=== PATIENT | male | born 1970 | race Caucasian/White ===

== ENCOUNTER 2019-08-15 10:00 | Outpatient (CLI) | payer OTHER, SELFPAY | END 2019-08-15 10:01 | disposition home or self-care (01) | LOC: ANHAUDIO 10:01 | PROVIDERS: PCP Family Medicine; Visit Provider Otolaryngology | DX: H90.3 Sensorineural hearing loss, bilateral (principal) | CPT/HCPCS: 92557; 92567 ==

== ENCOUNTER 2020-04-15 05:20 | Emergency (ER) | payer OTHER, SELFPAY ==
--- NOTE | ~2020-04-15 | XR_ITS ---
EXAMINATION: XR chest 2V EXAM DATE: 04/15/2020 06:04 INDICATION: Shortness of breath. Chest pain. TECHNIQUE: Frontal and lateral projections of the chest obtained and reviewed. Comparison is made to prior examination from 02/17/2004. FINDINGS: The lungs are clear. There are no pleural effusions. The cardiomediastinal silhouette is within normal limits. There is no pneumothorax suspected. The bones and soft tissues are unremarkab le. IMPRESSION: Unremarkable chest x-ray exam. Reviewed, dictated and finalized at location A. ING AND TUBING MACHINE OPERATOR
--- NOTE | ~2020-04-15 | CT_ITS ---
EXAMINATION: CTA chest PE protocol EXAM DATE: 04/15/2020 06:32 INDICATION: Chest pain radiating to left shoulder. Shortness of breath. TECHNIQUE: Spiral CTA of the chest (pulmonary arteries) was performed with 100 cc Omnipaque 350 intr avenous contrast injection. Images were acquired during the pulmonary arterial phase. Coronal maxi mum intensity projection 3D-reconstructions were created by the technologist on dedicated workstation . Axial, coronal and sagittal reformatted images were reviewed. The dose-length product (DLP) for t his examination was 233.06 mGy-cm. The exposure was tailored according to patient size (auto mA exp osure control), and iterative reconstruction (ASIR) was used as additional dose reduction technique. There is no prior study for comparison. FINDINGS: Pulmonary arteries are well opacified and without intraluminal filling defects. No thora cic aortic dissection. There is mild emphysema. Mild hyperinflation. The lungs are clear. There are no pleural or pericardial effusions. Tracheobronchial tree is patent. There is no mediastinal, h ilar or axillary lymphadenopathy. There is no pneumothorax. Heart normal in size. No evidence o f coronary arterial calcification. Upper abdomen is unremarkable. The bones are unremarkable. IMPRESSION: 1. No pulmonary emboli. 2. No pulmonary emboli. Reviewed, dictated and finalized at location A. ING MACHINE SETTER
[2020-04-15 05:28] VITALS: BP 143/98; PULSE 80; RESP 18; O2SAT 100
--- NOTE | 2020-04-15 05:33 | ECG_ITS ---
Measurements Intervals [place] Rate: 75 P: 78 [place]: 171 QRS: 76 QRSD: 93 T: 78 QT: 351 QTc: 394 Interpretive Statements SINUS RHYTHM WITH SINUS ARRHYTHMIA POSSIBLE LEFT ATRIAL ENLARGEMENT DELAYED PRECORDIAL R/S TRANSITION BORDERLINE T WAVE ABNORMALITY- HIGH LATERAL LEADS BORDERLINE ECG Electronically Signed On 04-15-2020 7:13:58 ANIMAL CARE SUPERVISOR by Miquel Lindsey D.O.
--- NOTE | 2020-04-15 05:42 | ED.CHESTPAIN ---
HPI - Chest Pain General Chief Complaint: Chest Pain Stated Complaint: cp and sob since yesterday Time Seen by Provider: 04/15/20 05:33 History of Present Illness HPI narrative: 50 yo male presents to the ED for CP. He has had chest pain since 1900 last night. The pain awoke him from sleep. It is sharp substernal pain. It is worse with taking a deep breath. He also has pain in the left shoulder that is worse with arm movement. He has never had these symptoms before. He has not tried anything for his pain. He is a daily smoker. Related Data Allergies Allergy/AdvReac Type Severity Reaction Status Date / Time No Known Allergies Allergy Unverified 06/27/18 16:47 Review of Systems Review of Systems: All systems reviewed & are unremarkable except as noted in HPI and below Constitutional: Constitutional: Denies chills ENT: Denies system reviewed and no additional complaints, except as documented Cardiovascular: Cardiovascular: Reports chest pain Respiratory: Respiratory: Reports dyspnea Gastrointestinal: Gastrointestinal: Denies abdominal pain Musculoskeletal: Musculoskeletal: Reports no additional musculoskeletal complaints Neurologic: Denies numbness and Denies weakness [facility] Past Medical History Medical History (Updated 04/16/20 @ 00:00 by Jessenia Scott) Healthy adult male Social History Social History (Updated 04/15/20 @ 05:[address] MD) Smoking status: Current every day smoker Exam Const: General: healthy appearing, no acute distress and alert Orientation/consciousness: patient oriented x3 HENMT: Head: normal to inspection Neck: Neck: normal visual inspection and no lymphadenopathy Chest: Chest palpation & inspection: tenderness Resp: Effort & Inspection: normal respiratory effort Auscultation: clear to auscultation bilaterally, no rales, no rhonchi and no wheezes Cardio: Jugular venous distension: no JVD Rate: regular rate Rhythm: regular rhythm Heart sounds: no murmurs GI: Inspection: non-distended GI Palp: Yes Soft to palpation and No Tenderness to palpation present (GI) Skin: General skin exam: normal color Neuro: General: patient oriented x3 and moves all extremities Speech: normal speech Extrem: General: no edema Psych: Appearance: well kempt Affect: normal affect Course Vital Signs Vital signs: Vital Signs Pulse Rate 80 04/15/20 05:28 Respiratory Rate 18 04/15/20 05:28 Blood Pressure 143/98 H 04/15/20 05:28 Pulse Oximetry 100 04/15/20 05:28 Temperature 36.8 C 04/15/20 07:20 Pulse Rate 68 04/15/20 07:20 Respiratory Rate 18 04/15/20 07:20 Blood Pressure 139/105 H 04/15/20 07:20 Pulse Oximetry 100 04/15/20 07:20 MDM - Chest Pain MDM Narrative Medical decision making narrative: He has pleuritic chest pain. No PE or pneumonia on CT. He does have an elevated WBC count. Likely bronchitis. Medical Records Data Attestation: I reviewed the patient's medical records. Lab Data Attestation: I reviewed the patient's lab results. Result diagrams: 04/15/20 05:35 04/15/20 05:35 Labs: Lab Results 04/15/20 04/15/20 04/15/20 Range/Units 05:35 05:35 05:35 WBC 17.1 H (4.5-10.0) K/mm3 RBC 4.56 L (4.6-6.20) M/mm3 Hgb 15.1 (14.0-18.0) g/dL Hct 45.6 (42.0-52.0) % MCV 100.0 (80-100) fl MCH 33.1 (26-34) pg MCHC 33.1 (32-36) g/dl RDW 12.9 (11.5-14.5) % Plt Count 233 (150-375) k/mm3 MPV 9.2 (7.4-10.4) fl Immature Gran % (Auto) 0.5 (0-0.5) % Neut % (Auto) 75.1 H (45.5-73.1) % Lymph % (Auto) 17.7 L (18.3-44.2) % [place] % (Auto) 5.5 (2.6-8.5) % Eos % (Auto) 0.7 (0-4.4) % Baso % (Auto) 0.5 (0.2-1.2) % Lymph # (Auto) 3.02 (0.9-3.2) K/mm3 [place] # (Auto) 0.9 H (0.1-0.6) K/mm3 Eos # (Auto) 0.1 (0-0.3) K/mm3 Baso # (Auto) 0.1 (0.0-0.1) K/mm3 Abs Immat Gran (auto) 0.08 H (0.00-0.031) K/mm3 Absolute Neuts (a
[2020-04-15 05:44] VITALS: PULSE 75
[2020-04-15 05:44] LABS: Basophils Absolute Auto 0.1 K/mm3 (0.0-0.1); Basophils Percent Auto 0.5 % (0.2-1.2); Eosinophils Absolute Auto 0.1 K/mm3 (0-0.3); Eosinophils Percent Auto 0.7 % (0-4.4); Hematocrit 45.6 % (42.0-52.0); Hemoglobin 15.1 g/dL (14.0-18.0); Immature Granulocyte Absolute 0.08 K/mm3 (0.00-0.031); Immature Granulocyte Percent A 0.5 % (0-0.5); Lymphocytes Absolute Auto 3.02 K/mm3 (0.9-3.2); Lymphocytes Percent Auto 17.7 % (18.3-44.2); Mean Corpuscular HGB Conc 33.1 g/dl (32-36); Mean Corpuscular Hemoglobin 33.1 pg (26-34); Mean Platelet Volume 9.2 fl (7.4-10.4); Monocytes Absolute Auto 0.9 K/mm3 (0.1-0.6); Monocytes Percent Auto 5.5 % (2.6-8.5); Neutrophils Absolute Auto 12.8 K/mm3 (1.3-6.7); Neutrophils Percent Auto 75.1 % (45.5-73.1); Platelet Count Result 233 k/mm3 (150-375); Red Blood Count 4.56 M/mm3 (4.6-6.20); Red Cell Distribution Width 12.9 % (11.5-14.5); White Blood Count 17.1 K/mm3 (4.5-10.0)
[2020-04-15] MEDS: ASPIRIN 81 MG CHEWABLE TABLET 324 MG PO (05:49)
[2020-04-15 05:56] LABS: INR 0.9; Prothrombin Time 12.2 Seconds (11.1-14.7)
[2020-04-15 05:57] LABS: Anion Gap 4 mmol/L (8-16); Blood Urea Nitrogen 26 mg/dL (9-20); Calcium 9.7 mg/dL (8.4-10.2); Carbon Dioxide 33 mmol/L (22-30); Chloride 103 mmol/L (98-107); Estimated CRCL calculation 43 ml/min; Estimated Glomerular Filt Rate 49; Glucose 95 mg/dL (75-110); Partial Thromboplastin Time 42.4 SECONDS (22.3-36.8); Potassium 4.2 mmol/L (3.4-5.0); Sodium 140 mmol/L (137-145)
[2020-04-15 06:08] LABS: Troponin I < 0.012 ng/mL (0.000-0.034)
[2020-04-15 06:10] VITALS: BP 145/104; PULSE 74; RESP 19; O2SAT 100
[2020-04-15] MEDS: SODIUM CHLORIDE 0.9% IV 1,000 ML 999 ML IV CONT (06:16)
[2020-04-15 06:45] VITALS: PULSE 73; RESP 16
[2020-04-15] MEDS: ALBUTEROL SULFATE NEB 2.5 MG/0.5 ML INH 5 MG INHALATION (06:45)
[2020-04-15] MEDS: IPRATROPIUM BR 0.02% INH SOLN 0.5 MG/2.5 ML VIAL INHALATION (06:45)
[2020-04-15 06:52] VITALS: PULSE 73; RESP 14
[2020-04-15 07:20] VITALS: BP 139/105; PULSE 68; RESP 18; TEMP 36.8; O2SAT 100
== END 2020-04-15 07:36 | disposition home or self-care (01) ==
PROVIDERS: Emergency Provider Emergency Medicine; PCP Family Medicine
DX: J20.9 Acute bronchitis, unspecified (principal); F17.210 Nicotine dependence, cigarettes, uncomplicated
CPT/HCPCS: 36415; 71046; 71275; 80048; 84484; 85025; 85610; 85730; 93005; 94640; 96360; 99284; A9270; J7030; Q9967

== ENCOUNTER 2021-09-06 13:47 | Outpatient (CLI) | payer OTHER, SELFPAY | END 2021-09-06 13:48 | disposition home or self-care (01) | LOC: ANHAUDIO 13:48 | PROVIDERS: PCP Family Medicine; Referring Provider Otolaryngology; Visit Provider Otolaryngology | DX: H91.93 Unspecified hearing loss, bilateral (principal); H93.13 Tinnitus, bilateral | CPT/HCPCS: 92557; 92567 ==

== ENCOUNTER 2021-10-09 11:04 | Inpatient (IN) | payer OTHER, SELFPAY ==
[2021-10-09] VITALS (15 sets, daily range): BP systolic 102–140; BP diastolic 70–93; PULSE 56–79; RESP 14–20; TEMP 36.6–37; O2SAT 93–99; BMI 20.6
--- NOTE | 2021-10-09 | ECHO_ITS ---
Patient Info Name: Gabriella Daly Age: 51 years : 1970 Gender: Male Ht: 65 in Wt: 123 lbs BSA: 1.60 m2 HR: 50 bpm BP: 103 / 70 mmHg Heart Rhythm: Sinus Rhythm Technical Quality: Fair Exam Date: 10/09/2021 1:30 PM Exam Location: [facility] Patient Status: Inpatient Admit Date: 10/09/2021 Staff Ordering Physician: Yoni Fried MD Watermelon Inspector: Daniela Dominguez [facility] Attending Provider: Emanuel Dorado MD Exam Type: CA echo doppler color flow Study Info Indications I21.3 - ST elevation (STEMI) myocardial infarction of unspecified site Complete two-dimensional, color flow and Doppler transthoracic echocardiogram is performed. Summary 1. Complete two-dimensional, color flow and Doppler transthoracic echocardiogram is performed. 2. Left ventricular chamber dimension is normal. 3. Left ventricular systolic function is moderately reduced, estimated at 35-40%. 4. The mid to apical anterior wall, apex, apical inferior wall and anteroseptal segments are akinetic. 5. No valvular dysfunction. Left Ventricle Left ventricular chamber dimension is normal. Left ventricular systolic function is moderately reduced, estimated at 35-40%. The left ventricular diastolic function is normal. The mid to apical anterior wall, apex, apical inferior wall and anteroseptal segments are akinetic. Right Ventricle Right ventricular chamber dimension is normal. Left Atria Left atrial chamber dimension is normal. Right Atria Right atrial chamber dimension is normal. Aortic Valve The aortic valve is normal. Pulmonic Valve The pulmonic valve is normal. Mitral Valve The mitral valve has normal leaflets. There is no mitral valve regurgitation. Tricuspid Valve The tricuspid valve leaflets are normal. Pericardium/Pleural The pericardium appears normal. Aorta The aortic root size at the sinus of Valsalva is normal. Left Ventricular Outflow Tract Name Value Normal LVOT 2D LVOT Diameter 1.9 cm LVOT Doppler LVOT Peak Gradient 1 mmHg LVOT Mean Gradient 1 mmHg LVOT VTI 13 cm LVOT VTI/AV VTI Ratio 0.7 LVOT Stroke Volume 37 ml LVOT CO 6.6 l/min LVOT CI 4.2 l/min/m2 Pulmonic Valve Name Value Normal PV Doppler PV Peak Gradient 2 mmHg Mitral Valve Name Value Normal MV Doppler MV Decel [place] 223 cm/s2 MV PHT
--- NOTE | ~2021-10-09 | CT_ITS ---
EXAMINATION: CT brain wo con DATE: 10/09/2021 11:33 INDICATION: Slurred speech. Left facial droop. TECHNIQUE: Computed tomography (CT) of the head was performed without intravenous contrast. The mA wa s adjusted according to patient size. Iterative reconstruction technique was employed. Exam dose: 60 5.33 mGy-cm total exam DLP. COMPARISON: None FINDINGS: Bilateral carotid siphon internal carotid artery calcification is noted. No intracranial mass lesion or hemorrhage or cerebrovascular accident is detected. CT is not sensitiv e for detection of hyperacute nonhemorrhagic cerebrovascular accident. No midline shift or mass effect effect. Normal ventricular size. No subdural or epidural hematoma. Soft tissue opacification within the posterior right ethmoid air cell. The included paranasal sinuses and the mastoid air cells are otherwise unremarkable. No fracture or bone destruction of the cranial vault. IMPRESSION: Cerebral atherosclerosis No acute intracranial finding CT is not sensitive for detection of hyperacute ischemic CVA. Reviewed, dictated and finalized at [facility]. Reviewed, dictated and finalized at location [facility].
--- NOTE | ~2021-10-09 | XR_ITS ---
XR chest 1V portable DATE: 10/09/2021 11:16 INDICATION: STEMI TECHNIQUE: Portable upright AP chest on 10/09/2021 at 1115 hours COMPARISON: 04/15/2020 CT pulmonary scan 04/15/2020 PA and lateral chest FINDINGS: Normal heart size. No hilar or mediastinal mass lesion or lymphadenopathy is evident. Minimal atelectasis at the lung bases. No pulmonary infiltrate or consolidation, pleural effusion or pulmonary vascular congestion or pneumothorax is evident otherwise. Included skeletal structures are unremarkable other than slight right dextroscoliosis. IMPRESSION: Minimal atelectasis at the lung bases Reviewed, dictated and finalized at location [facility].
--- NOTE | 2021-10-09 11:08 | ECG_ITS ---
Measurements Intervals [place] Rate: 68 P: 77 [place]: 170 QRS: 60 QRSD: 81 T: 54 QT: 358 QTc: 383 Interpretive Statements SINUS RHYTHM WITH MARKED SINUS ARRHYTHMIA POSSIBLE LEFT ATRIAL ENLARGEMENT ANTEROSEPTAL ST ELEVATION MYOCARDIAL INFARCT- ACUTE BASELINE ARTIFACT- I, II, III, AVR, AVL, AVF, V4-V6 ABNORMAL ECG Electronically Signed On 10-09-2021 15:39:09 CDT by Miquel Lindsey D.O.
--- NOTE | 2021-10-09 11:14 | ED.GENADULT ---
HPI - General Adult General Chief complaint: Chest Pain Stated complaint: STEMI History of Present Illness HPI narrative: 51-year-old male with history of hypertension, high cholesterol, and smoking presents to the emergency department for evaluation of cute onset of chest pain that started while he was working in the yard. Patient states he did have pain that radiated up to his neck and into his left arm. Patient states the pain was a 10 out of 10. Patient was treated with aspirin and nitro by EMS and the Related Data Home Medications Medication Instructions Recorded Confirmed folic acid 1 mg tablet 1 mg PO DAILY 09/09/21 10/09/21 methotrexate sodium 2.5 mg tablet 25 mg PO WEEKLY 09/09/21 10/09/21 prednisone 5 mg tablet See Rx Instructions .Route .COMPLEX 09/09/21 10/09/21 tramadol 50 mg tablet 50 mg PO Q6H PRN Pain 09/09/21 10/09/21 levothyroxine 137 mcg tablet 125 mcg PO DAILY 10/09/21 10/09/21 (Synthroid) Allergies Allergy/AdvReac Type Severity Reaction Status Date / Time No Known Allergies Allergy Verified 09/09/21 15:59 Review of Systems Review of Systems: CONSTITUTIONAL: Denies fever, chills, or sweats. EYES: Denies visual changes, redness, or discharge. ENT: Denies rhinorrhea, congestion, sore throat, or otalgia. CARDIOVASCULAR: See HPI RESPIRATORY: Denies cough or dyspnea. GASTROINTESTINAL: Denies abdominal pain, nausea, vomiting, or diarrhea. GENITOURINARY: Denies dysuria or hematuria. SKIN: Denies rash or itching. MUSCULOSKELETAL: Denies back pain, joint pain, or myalgia. NEUROLOGIC: Denies headache, numbness, or weakness. [facility] Past Medical History Medical History CKD (chronic kidney disease) stage 3, GFR 30-59 ml/min Dyslipidemia Erectile dysfunction Frequent headaches GERD (gastroesophageal reflux disease) Headache Healthy adult male Hearing loss Hypothyroidism Migraine Nicotine dependence with current use Syncopal episodes Thyroid disease Family History Family History Father Diabetes mellitus Sibling Diabetes mellitus Mother Hypertension Social History Social History Smoking packs per day: 1 Smoking cigarettes per day: 20.0 Years smoked: 35 Smoking pack-years: 35.00 Smoking status: Current every day smoker Tobacco type: cigarettes Alcohol intake: former Substance use: never Substance use type: does not use Additional occupation/education comments: [employer] Gender identity (if verbalized by the patient): Male Sexual Orientation (if Verbalized by the Patient): Straight or Heterosexual Spiritual care concerns: No Agree to blood products: Yes Exam Narrative: APPEARANCE: Well appearing, no pain, no distress, well-nourished. HEAD: normocephalic, atraumatic. EYES: PERRLA/EOMI, conjunctivae clear. NOSE: Normal no drainage THROAT: Pharynx clear, no exudate. NECK: Supple. No adenopathy, no masses. RESPIRATORY: Airway patent, respirations nonlabored. Clear to auscultation bilaterally, no rales, rhonchi, wheezing. CARDIOVASCULAR: Regular rate and rhythm without murmurs rubs or gallops. ABDOMINAL: Soft, nontender, nondistended, normal bowel sounds MUSCULOSKELETAL: Moves all extremities. Strength/ROM intact, No edema, No calf tenderness. NEURO: Alert. Cranial nerves II through XII intact. Grossly intact, no neurodeficit. Normal strength reflexes. No facial droop. SKIN: Warm, dry. Normal Color Course Course Emergency Course: was concerned that the patient had some left-sided facial droop when she first brought him in from the yard. When EMS arrived to the scene they denied any neurologic deficit. In the emergency department patient has no facial droop and is neurologically intact. Head CT showed no acute intracranial abnormality. Case was discussed with cardiology due to concern for an acute ST
[2021-10-09 11:15] LABS: Basophils Absolute Auto 0.1 K/mm3 (0.0-0.1); Basophils Percent Auto 0.5 % (0.2-1.2); Eosinophils Absolute Auto 0.1 K/mm3 (0-0.3); Eosinophils Percent Auto 0.9 % (0-4.4); Hematocrit 44.4 % (42.0-52.0); Hemoglobin 14.3 g/dL (14.0-18.0); Immature Granulocyte Absolute 0.12 K/mm3 (0.00-0.031); Immature Granulocyte Percent A 0.9 % (0-0.5); Lymphocytes Absolute Auto 3.08 K/mm3 (0.9-3.2); Lymphocytes Percent Auto 23.9 % (18.3-44.2); Mean Corpuscular HGB Conc 32.2 g/dl (32-36); Mean Corpuscular Hemoglobin 31.5 pg (26-34); Mean Corpuscular Volume 97.8 fl (80-100); Mean Platelet Volume 9.1 fl (7.4-10.4); Monocytes Absolute Auto 0.9 K/mm3 (0.1-0.6); Monocytes Percent Auto 6.7 % (2.6-8.5); Neutrophils Absolute Auto 8.6 K/mm3 (1.3-6.7); Neutrophils Percent Auto 67.1 % (45.5-73.1); Platelet Count Result 220 k/mm3 (150-375); Red Blood Count 4.54 M/mm3 (4.6-6.20); Red Cell Distribution Width 13.8 % (11.5-14.5); White Blood Count 12.9 K/mm3 (4.5-10.0)
[2021-10-09] MEDS: MORPHINE SULFATE (*CRX) 4 MG/ML INJ IV PUSH (11:19)
[2021-10-09] MEDS: ONDANSETRON INJ 4 MG/2 ML VIAL IV PUSH (11:24)
[2021-10-09 11:25] LABS: Alanine Aminotransferase 27 U/L (6-50); Albumin Level 3.9 g/dL (3.5-5.1); Alkaline Phosphatase 73 U/L (38-126); Anion Gap 5 mmol/L (8-16); Aspartate Amino Transferase 24 U/L (17-59); Bilirubin,Total 0.3 mg/dL (0.2-1.3); Blood Urea Nitrogen 19 mg/dL (9-20); Calcium 8.6 mg/dL (8.4-10.2); Carbon Dioxide 29 mmol/L (22-30); Chloride 108 mmol/L (98-107); Cholesterol 127 mg/dL (0-200); Estimated CRCL calculation 60 ml/min; Estimated Glomerular Filt Rate > 60; Glucose 135 mg/dL (65-110); HDL Direct 50 mg/dL; Potassium 4.3 mmol/L (3.4-5.0); Sodium 142 mmol/L (137-145); Triglycerides 197 mg/dL (<150)
[2021-10-09 11:26] LABS: Prothrombin Time 12.9 Seconds (11.1-14.7)
[2021-10-09 11:27] LABS: Partial Thromboplastin Time 34.6 SECONDS (22.3-36.8)
[2021-10-09 11:35] LABS: LDL Cholesterol Direct 38 mg/dL
[2021-10-09 11:36] LABS: Troponin I 0.026 ng/mL (0.000-0.034)
--- NOTE | 2021-10-09 12:24 | ECG_ITS ---
Measurements Intervals [place] Rate: 55 P: 84 MD: 135 QRS: 76 QRSD: 101 T: 75 QT: 385 QTc: 370 Interpretive Statements SINUS BRADYCARDIA WITH SINUS ARRHYTHMIA ANTERIOR INFARCT, AGE INDETERMINATE BASELINE ARTIFACT- I, III, AVR, AVL ABNORMAL ECG Electronically Signed On 10-09-2021 15:30:22 CDT by Miquel Lindsey D.O.
--- NOTE | 2021-10-09 12:25 | WPDCNINT ---
Assessment and Plan Assessment and plan (1) ST elevation (STEMI) myocardial infarction: Qualifiers: Involved coronary artery: unspecified coronary artery Qualified Code(s): I21.3 - ST elevation (STEMI) myocardial infarction of unspecified site Code(s): I21.3 - ST elevation (STEMI) myocardial infarction of unspecified site Status: Acute Assessment and Plan: Patient presented with anterior ST segment elevation [place] Now status post cardiac catheterization and stent placement in LAD Angiomax is currently infusing. Sheath will be removed later as per cardiology ICU telemetry monitoring Check echo Cautious IV fluids for renal protection Continue aspirin, Lipitor, Coreg, Brilinta and losartan Currently hemodynamically stable in sinus Jean Marie on telemetry and room air (2) GERD (gastroesophageal reflux disease): Code(s): K21.9 - Gastro-esophageal reflux disease without esophagitis Status: Acute Assessment and Plan: Continue PPI (3) Dyslipidemia: Code(s): E78.5 - Hyperlipidemia, unspecified Status: Acute Assessment and Plan: Patient will be started on Lipitor (4) Hypothyroidism: Qualifiers: Hypothyroidism type: acquired Qualified Code(s): E03.9 - Hypothyroidism, unspecified Code(s): E03.9 - Hypothyroidism, unspecified Status: Acute Assessment and Plan: Continue levothyroxine Patient had recent TSH checked and was elevated and his levothyroxine dose was increased. (5) Arthritis: Code(s): M19.90 - Unspecified osteoarthritis, unspecified site Status: Acute Assessment and Plan: Continue home prednisone and folic acid Additional Plan DVT prophylaxis -patient received anticoagulation for cardiac catheterization. Will start anticoagulation tomorrow if patient still not ambulating Stress ulcer prophylaxis -on PPI Nutrition -heart healthy diet Code Status - Full Code Vocational Examiner Consult Note Consult date: 10/09/21 Reason for consult: STEMI HPI: Gabriella Daly is a 51 year old male with history of hypertension, hyperlipidemia, arthritis and smoking presents to the emergency department for evaluation of acute cute onset of chest pain that started while he was working in the yard around 9:30 a.m.. Pain was pressure in quality and radiated up to his neck and into his left arm.? Pain was 10 out of 10 severe Patient was treated with aspirin and nitro by EMS and any ER patient was found to be having anterior STEMI. Patient was taken to cardiac catheterization lab and underwent angiogram which showed total occlusion of left anterior descending artery. A stent was placed LAD. Patient now admitted to ICU for further evaluation management. At this time patient states that he does not have any symptoms and pain is present resolved. Patient denies fever, shortness of breath, cough, nausea vomiting, abdominal pain,, diarrhea, headache or constipation. All other systems reviewed In August when patient saw his primary care physician, he mentioned retrosternal heartburn pain for which she was taking Tums but when I asked patient about this he completely denied having any pain or taking Tums. Review of Systems Review of Systems: All systems reviewed & are unremarkable except as noted in HPI and below (HPI) PMFSH Past Medical History Medical History CKD (chronic kidney disease) stage 3, GFR 30-59 ml/min Dyslipidemia Erectile dysfunction Frequent headaches GERD (gastroesophageal reflux disease) Headache Healthy adult male Hearing loss Hypothyroidism Migraine Nicotine dependence with current use Syncopal episodes Thyroid disease Family History Family History Father Diabetes mellitus Sibling Diabetes mellitus Mother Hypertension Social History Social History Kel
--- NOTE | 2021-10-09 12:27 | WPDCARDPROC ---
Cardiac Cath Procedure Note Date of procedure:: 10/09/21 Performing physician:: Emanuel Dorado MD Indication:: anterior wall ST-elevation [place] Brief clinical history:: this is a 51-year-old man with a previous history of dyslipidemia and smoking as arthritis for which he takes steroids. He enters the hospital with chest pain that began this morning while he was doing yd work with ECG evidence of acute anterior wall infarction noted in the field. Procedure Procedure performed:: Emergency coronary angiogram emergency PCI(KIMBER) to the proximal LAD left ventriculography Sedation/Medication given:: no additional sedation in the laboratory technology teacher Access site:: right femoral artery Estimated blood loss:: 25 cc Procedure note:: patient was brought to the cardiac laboratory technology teacher in the emergency setting. The right femoral triangle was prepared and draped in the usual fashion. Anesthesia was provided with 1% lidocaine infiltrated locally. Using the modified Seldinger technique a 6 Haitian sheath was placed into the right femoral artery. After this I used a standard 5 Haitian JR4 catheter to engage and inject the right coronary artery and orthogonal projections. Following this the left coronary artery was engaged and injected using a 6 Haitian CLS 3.5 guiding catheter. The cineangiograms were then reviewed after this emergency PCI of the proximal LAD was recommended and carried out as detailed below. Prior to intervention he was anticoagulated with Angiomax bolus and infusion any receive 180 mg oral Brilinta. He had been given 325 mg of aspirin in the emergency room. Following completion of intervention a pigtail catheter was used to measure left-sided hemodynamics and to inject LV g in the 30 degree MADRID projection. After this the sheath was sutured into position the case was terminated and the patient was taken to the ICU in stable condition. He tolerated the procedure well there were no apparent complications. There was no sign of groin hematoma upon leaving the cardiac catheterization lab. Findings:: Hemodynamics: The central aortic pressure is 118/76. left ventricle was 116/10 end-diastolic pressure 22. No gradient seen on pullback across the aortic valve. Left ventricle: The left ventricle is mildly enlarged the entire anterior wall is akinetic. The posterior inferior segment contracts well. The global ejection fraction at this time is visually estimated at 35%. The left main coronary artery is nicely patent the left anterior descending is a moderate caliber artery which gives rise to a small proximal septal perforating branch after which the LAD is 100% occluded with no antegrade filling. Appearance of this occlusion is typical of an abrupt thrombotic stenosis. The circumflex is a smaller caliber vessel giving rise to 2 marginal branches. The circumflex and its marginal branches are angiographically free of disease. The right coronary artery is a very large caliber artery that is dominant to the posterior circulation. The right coronary artery is smooth and angiographically normal in appearance intervention: The LAD was wired using a 0.014 BMW coronary guidewire. The lesion was pre-dilated using a 3 x 20 mm Og PTCA balloon. Following this the LAD was patent with YANET 3 flow down to the apex. The area of disease was then of course visible. The lesion was then stented using a 3.5 x 26 mm [employer] drug-eluting stent with an excellent anatomical result. The device was deployed at 10 atmospheres with no residual stenosis disruption dissection or distal embolization. There was good step-up and step-down noted at the proximal and distal margins of the stent. Conclusion:: 1. Coronary artery disease presenting with acute anterior wall infarction with abrupt acute thrombotic occlusion of the proximal LAD. 2. No circumflex or right coronary disease noted 3. severe LV systolic dysfunction with low ejection fr
--- NOTE | 2021-10-09 12:39 | PM.IMHP ---
H&P: HPI History of Present Illness Date/Time: 10/09/21 12:39 Chief Complaint: chest pain Narrative: this is a 51-year-old man I am meeting in the cardiac cath laboratory technician as he is being prepared for emergency angiography in the setting of acute anterior wall infarction. He has no prior history of overt coronary artery disease. This morning while mowing his yd he started chest pain as a retrosternal burning pressure-like pain. It did not radiate to any other location. After the pain had been there for a while he called 911 and in the field was found to have an ECG compatible with acute anterior wall infarction. STEMI was called and the emergency was activated. He reports a previous history of dyslipidemia as well as arthritis. He also has treated hypothyroidism. Review of Systems Review of Systems: ROS unobtainable: Yes unobtainable due to medical condition PMFSH Past Medical History Medical History CKD (chronic kidney disease) stage 3, GFR 30-59 ml/min Dyslipidemia Erectile dysfunction Frequent headaches GERD (gastroesophageal reflux disease) Headache Healthy adult male Hearing loss Hypothyroidism Migraine Nicotine dependence with current use Syncopal episodes Thyroid disease Family History Family History Father Diabetes mellitus Sibling Diabetes mellitus Mother Hypertension Social History Social History Smoking status: Current every day smoker Tobacco type: cigarettes Alcohol intake: current Substance use: never Substance use type: does not use Additional occupation/education comments: [employer] Gender identity (if verbalized by the patient): Male Sexual Orientation (if Verbalized by the Patient): Straight or Heterosexual Agree to blood products: Yes Meds Home Medications and Allergies Home Medications Medication Instructions Recorded Confirmed Type atorvastatin 40 mg tablet (Lipitor) 40 mg PO QHS #90 tabs 07/15/21 09/09/21 Rx azelastine 137 mcg (0.1 %) nasal 1 spray intranasal Q12H #30 mL 08/02/21 09/09/21 Rx spray aerosol fluticasone propionate 50 1 - 2 spray intranasal BID #16 mL 08/02/21 09/09/21 Rx mcg/actuation nasal spray,suspension (Flonase Allergy Relief) cholecalciferol (vitamin D3) 50 50 mcg PO DAILY 09/09/21 09/09/21 History mcg (2,000 unit) capsule ferrous gluconate 240 mg (27 mg 240 mg PO DAILY PRN 09/09/21 09/09/21 History iron) tablet (Ferate) folic acid 1 mg tablet 1 mg PO DAILY 09/09/21 09/09/21 History methotrexate sodium 2.5 mg tablet 25 mg PO WEEKLY 09/09/21 09/09/21 History omega 6-lsa-iwc-fish oil 1,000 mg 1 cap PO DAILY 09/09/21 09/09/21 History (120 mg-180 mg) capsule (Fish Oil) omeprazole 40 mg capsule,delayed 40 mg PO DAILY #90 caps 09/09/21 09/09/21 Rx release prednisone 5 mg tablet 5 mg PO BID 09/09/21 09/09/21 History tramadol 50 mg tablet 50 mg PO Q6H PRN 09/09/21 09/09/21 History Synthroid 137 mcg tablet 137 mcg PO DAILY #90 tabs 09/13/21 Rx (levothyroxine) Allergies Allergy/AdvReac Type Severity Reaction Status Date / Time No Known Allergies Allergy Verified 09/09/21 15:59 Vital Signs Vital Signs - 24 hr 10/09/21 11:05 10/09/21 11:30 Temperature 36.7 C Pulse Rate 62 Respiratory Rate 14 Blood Pressure 103/70 Pulse Oximetry 98 99 Oxygen Delivery Room Air Room Air Exam Const: General: uncomfortable Other: Well-developed well-nourished gentleman in remarkably little distress given anterior TN HENMT: Mouth: Yes moist mucous membranes Eyes: Sclera: sclerae normal Neck: Neck: supple and no JVD Other: normal carotid pulses bilateral Resp: Effort & Inspection: normal respiratory effort Auscultation: clear to auscultation bilaterally Cardio: Rate: regular rate Rhythm: regular rhythm Other: S4 is evident no murmur GI: G
[2021-10-09] MEDS: SODIUM CHLORIDE 0.9% IV 1,000 ML 125 ML IV CONT (13:55)
[2021-10-09] MEDS: NITROGLYCERIN SL 0.4 MG TABLET SUBLINGUAL (13:55)
[2021-10-09] MEDS: MORPHINE SULFATE (*CRX) 2 MG/ML INJ IV PUSH ×2 (15:13→19:44)
[2021-10-09 15:53] LABS: Troponin I > 80.000 ng/mL (0.000-0.034)
--- NOTE | 2021-10-09 17:00 | PC.NURSE ---
Sheath was removed at 1604. Pressure was held proximal to the sheath site for 15 minutes. Hemostasis was achieved at 1619. Site was soft, no evidence of hematoma or bruising at the time.
--- NOTE | 2021-10-09 17:13 | PC.NURSE ---
While removing patient's sheath from the cardiac cath site, patient's spouse noticed the sign on the wall in the room regarding video surveillance. Patient's stated you all monitor people? That's so wrong, I don't want people seeing my privates. Patient's was informed we're not looking at anyone's privates, it is to monitor for patient safety. Charge, warehouse representative, manager credit risk and director were notified. I was instructed to give patient the option of turning off the camera. Patient was informed that it could be turned off if he would like and patient stated no, it doesn't bother me, I don't care.
[2021-10-09] MEDS: CALCIUM CARBONATE (TUMS) 500 MG (200 MG ELEMENTAL) PO (18:20)
[2021-10-09 19:20] LABS: Troponin I > 80.000 ng/mL (0.000-0.034)
[2021-10-09] MEDS: carvediloL 6.25 MG TABLET PO (22:27)
[2021-10-09] MEDS: TICAGRELOR 90 MG TABLET PO (22:27)
[2021-10-10] VITALS (16 sets, daily range): BP systolic 88–131; BP diastolic 56–95; PULSE 53–81; RESP 12–22; TEMP 36.6–37.8; O2SAT 95–100
[2021-10-10 04:27] LABS: Hematocrit 43.8 % (42.0-52.0); Hemoglobin 14.1 g/dL (14.0-18.0); Mean Corpuscular HGB Conc 32.2 g/dl (32-36); Mean Corpuscular Hemoglobin 31.4 pg (26-34); Mean Corpuscular Volume 97.6 fl (80-100); Mean Platelet Volume 9.1 fl (7.4-10.4); Platelet Count Result 184 k/mm3 (150-375); Red Blood Count 4.49 M/mm3 (4.6-6.20); Red Cell Distribution Width 13.9 % (11.5-14.5); White Blood Count 17.1 K/mm3 (4.5-10.0)
[2021-10-10 04:39] LABS: Alanine Aminotransferase 50 U/L (6-50); Albumin Level 3.4 g/dL (3.5-5.1); Alkaline Phosphatase 68 U/L (38-126); Anion Gap 2 mmol/L (8-16); Aspartate Amino Transferase 216 U/L (17-59); Bilirubin,Total 0.5 mg/dL (0.2-1.3); Blood Urea Nitrogen 14 mg/dL (9-20); Calcium 8.2 mg/dL (8.4-10.2); Carbon Dioxide 27 mmol/L (22-30); Chloride 107 mmol/L (98-107); Estimated CRCL calculation 66 ml/min; Estimated Glomerular Filt Rate > 60; Glucose 168 mg/dL (65-110); Magnesium 2.1 mg/dL (1.6-2.3); Phosphorus 2.9 mg/dL (2.5-4.5); Sodium 136 mmol/L (137-145)
--- NOTE | 2021-10-10 05:11 | ECG_ITS ---
Measurements Intervals [place] Rate: 66 P: 88 [place]: 141 QRS: 83 QRSD: 100 T: 105 QT: 366 QTc: 385 Interpretive Statements SINUS RHYTHM ANTEROLATERAL INFARCT, PROBABLY RECENT BASELINE ARTIFACT- I, II, AVR, V2 ABNORMAL ECG Electronically Signed On 10-10-2021 9:47:49 CDT by Miquel Lindsey D.O.
[2021-10-10] MEDS: LEVOTHYROXINE SODIUM 112 MCG, LEVOTHYROXINE SODIUM 25 MCG 137 MCG PO (06:41)
--- NOTE | 2021-10-10 08:05 | WPDINTPN ---
Progress Note: A&P Assessment and Plan (1) ST elevation (STEMI) myocardial infarction: Qualifiers: Involved coronary artery: unspecified coronary artery Qualified Code(s): I21.3 - ST elevation (STEMI) myocardial infarction of unspecified site Code(s): I21.3 - ST elevation (STEMI) myocardial infarction of unspecified site Status: Acute Assessment and Plan: Patient presented with anterior ST segment elevation [place] Now status post cardiac catheterization and stent placement in LAD Sheath removed ICU telemetry monitoring Echo done and report pending Continue aspirin, Lipitor, Coreg, Brilinta and losartan Currently asymptomatic chest pain-free hemodynamically stable in sinus Jean Marie on telemetry and room air (2) GERD (gastroesophageal reflux disease): Code(s): K21.9 - Gastro-esophageal reflux disease without esophagitis Status: Acute Assessment and Plan: Continue PPI (3) Dyslipidemia: Code(s): E78.5 - Hyperlipidemia, unspecified Status: Acute Assessment and Plan: Continue Lipitor (4) Hypothyroidism: Qualifiers: Hypothyroidism type: acquired Qualified Code(s): E03.9 - Hypothyroidism, unspecified Code(s): E03.9 - Hypothyroidism, unspecified Status: Acute Assessment and Plan: Continue levothyroxine Patient had recent TSH checked and was elevated and his levothyroxine dose was increased. (5) Arthritis: Code(s): M19.90 - Unspecified osteoarthritis, unspecified site Status: Acute Assessment and Plan: Continue home prednisone and folic acid Additional Plan DVT prophylaxis -patient received anticoagulation for cardiac catheterization. Will start anticoagulation tomorrow if patient still not ambulating Stress ulcer prophylaxis -on PPI Nutrition -heart healthy diet Code Status - Full Code Incentive spirometry, Up in chair transfer out of ICU today Subjective Date/time seen: 10/10/21 08:05 Patient states that he slept well and does not have any new complaints. Patient denies fever, chest pain, shortness of breath, cough, nausea vomiting, abdominal pain,, diarrhea, headache or constipation. All other systems were reviewed and were negative Sinus Jean Marie on the monitor with adequate blood pressure Room air Sheath was removed overnight Review of Systems Review of Systems: All systems reviewed & are unremarkable except as noted in HPI and below (HPI) Exam Narrative: General: Pt is alert awake and in NAD Lungs/Chest: Trachea central Clear BS B/L, No crackles or wheezing. Cardiac: RRR. Normal S1 S2. No murmurs Circulation: Pedal pulses are intact and symmetrical. Abdomen: Normal bowel sounds.. Soft. NT. ND. Extremities: No clubbing, cyanosis or edema. Warm right groin with no hematoma swelling or bruising : [place] in place Neurologic: Follows commands. Moves all 4 extremities PERRL AO x3 Skin: No Rash Objective Data Vital Signs Vital Signs: Vital Signs - 24 hr 10/09/21 11:05 10/09/21 11:30 10/09/21 14:00 Temperature 36.7 C Pulse Rate 62 58 L Respiratory Rate 14 Blood Pressure 103/70 Pulse Oximetry 98 99 Oxygen Delivery Room Air Room Air Oxygen Flow Rate 10/09/21 15:54 10/09/21 16:05 10/09/21 16:10 Temperature Pulse Rate 58 L 61 61 Respiratory Rate 16 19 19 Blood Pressure 102/76 105/78 107/74 Pulse Oximetry 96 96 96 Oxygen Delivery Oxygen Flow Rate 10/09/21 16:15 10/09/21 16:20 10/09/21 16:00 Temperature Pulse Rate 58 L 57 L Respiratory Rate 20 20 Blood Pressure 106/80 106/78 Pulse Oximetry 95 93 97 Oxygen Delivery Nasal Cannula Oxygen Flow Rate 2 10/09/21 16:00 10/09/21 16:00 10/09/21 18:00 Temperature Pulse Rate 57 L 61 61 Respiratory Rate 15 Blood Pressure 108/78 Pulse Oximetry 97 Oxygen Delivery Oxygen Flow Rate 10/09/21 18:00 10/09/21 12:30 10/09/21 20:00 Temperature 36.6 C Pulse Rate 66 79 56 L Respiratory R
[2021-10-10] MEDS: OMEGA 3 POLYUNSAT FATTY ACIDS 1 GM CAP PO (08:53)
[2021-10-10] MEDS: predniSONE 5 MG TABLET PO (08:53)
[2021-10-10] MEDS: LOSARTAN POTASSIUM 12.5 MG TABLET PO (08:53)
[2021-10-10] MEDS: ATORVASTATIN 40 MG TABLET 80 MG PO (08:53)
[2021-10-10] MEDS: carvediloL 6.25 MG TABLET PO ×2 (08:54→20:51)
[2021-10-10] MEDS: TICAGRELOR 90 MG TABLET PO ×2 (08:54→20:51)
[2021-10-10] MEDS: FOLIC ACID 1 MG TABLET PO (08:54)
[2021-10-10] MEDS: ASPIRIN 81 MG CHEWABLE TABLET PO (08:56)
--- NOTE | 2021-10-10 09:37 | PM.PNCARD ---
Progress Note: A&P Assessment and Plan (1) ST elevation (STEMI) myocardial infarction: Qualifiers: Involved coronary artery: unspecified coronary artery Qualified Code(s): I21.3 - ST elevation (STEMI) myocardial infarction of unspecified site Code(s): I21.3 - ST elevation (STEMI) myocardial infarction of unspecified site Status: Acute Plan 51-year-old man with previous history of dyslipidemia and smoking with acute anterior wall infarction and successful PCI of the LAD using the sirolimus Orsiro drug-eluting stent with a very good anatomical result. The patient is doing well this morning. Very high troponin rise and ECG evidence suggests a extensive transmural infarction. He did present a little bit later were about 3 to 3-1/2 hours following onset of symptoms. Hopefully he will experience some myocardial recovery but clearly there will be persistent LV systolic dysfunction based on this data. His ARB will will be advanced in dosage as his blood pressure is fine. He can move out to the IMU today. Expect him to be in the hospital a couple of more days at minimum Emanuel Dorado MD [facility] Subjective Date/time seen: Date of service:10/10/21 09:37 Interval history: Follow-up visit in this 51-year-old man with: Acute anterior wall myocardial infarction presenting yesterday with no previous cardiac history. Risk factors include dyslipidemia and cigarette smoking. He was brought to the cardiac labourers immediately and underwent successful PCI of the proximal LAD using drug-eluting stent with excellent angiographic result. The anterior wall is akinetic with a residual ejection fraction of about 35% at this time. Hopefully some of this is stunned rather than infarcted myocardium. Asymptomatic this morning feeling well. Exam Const: General: comfortable and no acute distress HENMT: Mouth: Yes moist mucous membranes Eyes: Sclera: sclerae normal Pupils: Equal, round and reactive pupils present Neck: Neck: supple and no JVD Other: Carotid pulses intact bilaterally no bruits Resp: Effort & Inspection: normal respiratory effort Auscultation: clear to auscultation bilaterally Cardio: Rate: regular rate Rhythm: regular rhythm Other: no murmur no gallop no rub GI: Auscultation: normal bowel sounds Skin: General skin exam: normal color Neuro: Other: normal cognition Extrem: General: normal to inspection Other: no edema, good pulses no hematoma at the right groin puncture site Objective Data Vital Signs Vital Signs: Vital Signs - 24 hr 10/09/21 11:05 10/09/21 11:30 10/09/21 14:00 Temperature 36.7 C Pulse Rate 62 58 L Respiratory Rate 14 Blood Pressure 103/70 Pulse Oximetry 98 99 Oxygen Delivery Room Air Room Air Oxygen Flow Rate 10/09/21 15:54 10/09/21 16:05 10/09/21 16:10 Temperature Pulse Rate 58 L 61 61 Respiratory Rate 16 19 19 Blood Pressure 102/76 105/78 107/74 Pulse Oximetry 96 96 96 Oxygen Delivery Oxygen Flow Rate 10/09/21 16:15 10/09/21 16:20 10/09/21 16:00 Temperature Pulse Rate 58 L 57 L Respiratory Rate 20 20 Blood Pressure 106/80 106/78 Pulse Oximetry 95 93 97 Oxygen Delivery Nasal Cannula Oxygen Flow Rate 2 10/09/21 16:00 10/09/21 16:00 10/09/21 18:00 Temperature Pulse Rate 57 L 61 61 Respiratory Rate 15 Blood Pressure 108/78 Pulse Oximetry 97 Oxygen Delivery Oxygen Flow Rate 10/09/21 18:00 10/09/21 12:30 10/09/21 20:00 Temperature 36.6 C Pulse Rate 66 79 56 L Respiratory Rate 18 18 Blood Pressure 126/90 108/77 Pulse Oximetry 94 93 Oxygen Delivery Oxygen Flow Rate 10/09/21 20:00 10/09/21 20:00 10/09/21 21:00 Temperature 37.0 C Pulse Rate 61 62 Respiratory Rate 20 18 Blood Pressure 133/91 H 140/93 H Pulse Oximetry 93 93 94 Oxygen Delivery Room Air Oxygen Flow Rate 10/09/21 22:00 10/09/21 22:00 10/10/21 00:00 Temperature Pulse Ra
[2021-10-10] MEDS: PANTOPRAZOLE 40 MG TABLET PO (09:54)
--- NOTE | 2021-10-10 11:52 | PC.NURSE ---
1151- Dr Dorado at bedside explaining in-depth patients NV, procedure, medications,risk,labs, follow-up,and possible outcomes to patients .
--- NOTE | 2021-10-10 15:19 | PC.NURSE ---
Patient at bedside very agitated about patients heart healthy diet, not sure what he can order,mad about caffeinated vs noncaffeinated coffee. also upset about not being informed about what patients reason for being here and what has all happened to him. Nurse tried to explain and educate what doctor said to patient/ new medications during rounds, cut nurse off and began yelling . Patients also yelling at patient for not recalling information doctor informed him with, his meal selections etc. later apologized to nurse for outburst, nurse explained to Hortensia that we were sorry for all the stress that she is under and Gabriella is our top priority. All staff were never trying to offend her or make her angry in anyway intentionally. Provided Hortensia with patient advocates number and new medication information, coreg, losartan, and brilinta.
[2021-10-11] VITALS (17 sets, daily range): BP systolic 89–115; BP diastolic 57–86; PULSE 51–67; RESP 16–22; TEMP 36.3–36.9; O2SAT 97–99; BMI 22.3
[2021-10-11 04:31] LABS: Hematocrit 41.5 % (42.0-52.0); Hemoglobin 13.1 g/dL (14.0-18.0); Mean Corpuscular HGB Conc 31.6 g/dl (32-36); Mean Corpuscular Hemoglobin 31.5 pg (26-34); Mean Corpuscular Volume 99.8 fl (80-100); Mean Platelet Volume 9.4 fl (7.4-10.4); Platelet Count Result 180 k/mm3 (150-375); Red Blood Count 4.16 M/mm3 (4.6-6.20); White Blood Count 13.4 K/mm3 (4.5-10.0)
[2021-10-11 04:42] LABS: Alanine Aminotransferase 37 U/L (6-50); Albumin Level 3.2 g/dL (3.5-5.1); Alkaline Phosphatase 61 U/L (38-126); Anion Gap 1 mmol/L (8-16); Aspartate Amino Transferase 97 U/L (17-59); Bilirubin,Total 0.3 mg/dL (0.2-1.3); Blood Urea Nitrogen 14 mg/dL (9-20); Carbon Dioxide 28 mmol/L (22-30); Chloride 110 mmol/L (98-107); Estimated CRCL calculation 59 ml/min; Estimated Glomerular Filt Rate > 60; Glucose 102 mg/dL (65-110); Magnesium 2.1 mg/dL (1.6-2.3); Phosphorus 3.4 mg/dL (2.5-4.5); Potassium 4.1 mmol/L (3.4-5.0); Sodium 139 mmol/L (137-145)
[2021-10-11] MEDS: LEVOTHYROXINE SODIUM 112 MCG, LEVOTHYROXINE SODIUM 25 MCG 137 MCG PO (05:49)
[2021-10-11] MEDS: TICAGRELOR 90 MG TABLET PO ×2 (08:26→20:07)
[2021-10-11] MEDS: FOLIC ACID 1 MG TABLET PO (08:26)
[2021-10-11] MEDS: ATORVASTATIN 40 MG TABLET 80 MG PO (08:26)
[2021-10-11] MEDS: carvediloL 6.25 MG TABLET PO ×2 (08:26→20:08)
[2021-10-11] MEDS: PANTOPRAZOLE 40 MG TABLET PO (08:26)
[2021-10-11] MEDS: OMEGA 3 POLYUNSAT FATTY ACIDS 1 GM CAP PO (08:26)
[2021-10-11] MEDS: predniSONE 5 MG TABLET PO (08:26)
[2021-10-11] MEDS: LOSARTAN POTASSIUM 25 MG TABLET PO (08:27)
[2021-10-11] MEDS: ASPIRIN 81 MG CHEWABLE TABLET PO (08:29)
--- NOTE | 2021-10-11 11:36 | PM.PNCARD ---
Progress Note: A&P Assessment and Plan (1) ST elevation (STEMI) myocardial infarction: Qualifiers: Involved coronary artery: unspecified coronary artery Qualified Code(s): I21.3 - ST elevation (STEMI) myocardial infarction of unspecified site Code(s): I21.3 - ST elevation (STEMI) myocardial infarction of unspecified site Status: Acute Assessment and Plan: 51-year-old man with previous history of dyslipidemia and smoking with acute anterior wall infarction and successful PCI of the LAD using the sirolimus Orsiro drug-eluting stent with a very good anatomical result. Unfortunately somewhat late presentation and has some LV systolic dysfunction as a result, EF 40-45%. Continue DAPT with ASA, Brilinta without interruption for at least one year Continue statin Continue aggressive risk factor modification including smoking cessation, heart healthy diet, aerobic exercise Continue losartan, coreg Anticipate discharge tomorrow if he remains stable overnight Subjective Date/time seen: 10/11/21 11:36 Cardiology follow up for CAD, STEMI Feels well this morning. No recurrent chest pain, no shortness of breath. Vital signs are stable, no arrhythmias on telemetry. Review of Systems Review of Systems: All systems reviewed & are unremarkable except as noted in HPI and below Exam Const: General: comfortable, no acute distress and uncomfortable Other: Well-developed well-nourished gentleman in remarkably little distress given anterior SD HENMT: Mouth: Yes moist mucous membranes Eyes: Sclera: sclerae normal Pupils: Equal, round and reactive pupils present Neck: Neck: supple and no JVD Resp: Effort & Inspection: normal respiratory effort Auscultation: clear to auscultation bilaterally Cardio: Rate: regular rate Rhythm: regular rhythm Heart sounds: no gallops, no murmurs and no rubs Other: GI: Auscultation: normal bowel sounds Skin: General skin exam: normal color Other: R groin arterial access site free from bleeding, hematoma, bruit. Neuro: Cranial nerves: Yes Equal, round and reactive pupils present Other: normal cognition Extrem: General: normal to inspection Other: no edema, good pulses no hematoma at the right groin puncture site Objective Data Vital Signs Vital Signs: Vital Signs - 24 hr 10/10/21 12:00 10/10/21 12:00 10/10/21 12:00 Temperature 36.6 C Pulse Rate 58 L 73 Respiratory Rate 19 Blood Pressure 114/64 Pulse Oximetry 97 Oxygen Delivery Room Air 10/10/21 16:00 10/10/21 14:00 10/10/21 14:00 Temperature 36.9 C 36.6 C Pulse Rate 53 L 61 63 Respiratory Rate 12 22 H Blood Pressure 88/56 L 99/69 L Pulse Oximetry 98 99 Oxygen Delivery 10/10/21 16:00 10/10/21 18:00 10/10/21 18:00 Temperature Pulse Rate 56 L 64 64 Respiratory Rate Blood Pressure Pulse Oximetry Oxygen Delivery 10/10/21 20:00 10/10/21 20:00 10/10/21 20:00 Temperature 36.8 C Pulse Rate 81 80 80 Respiratory Rate 18 18 Blood Pressure 110/66 Pulse Oximetry 100 100 Oxygen Delivery Room Air 10/10/21 20:51 10/10/21 22:00 10/10/21 22:11 Temperature Pulse Rate 69 58 L 58 L Respiratory Rate Blood Pressure Pulse Oximetry Oxygen Delivery 10/10/21 23:30 10/11/21 00:00 10/11/21 00:00 Temperature 37.8 C H Pulse Rate 76 63 63 Respiratory Rate 20 20 Blood Pressure 122/71 Pulse Oximetry 99 99 Oxygen Delivery Room Air 10/11/21 02:00 10/11/21 03:00 10/11/21 04:00 Temperature 36.9 C Pulse Rate 58 L 67 60 Respiratory Rate 20 Blood Pressure 106/68 Pulse Oximetry 98 Oxygen Delivery 10/11/21 04:00 10/11/21 06:00 10/11/21 08:00 Temperature 36.5 C Pulse Rate 60 62 61 Respiratory Rate 20 16 Blood Pressure 115/86 Pulse Oximetry 98 99 Oxygen Delivery Room Air Intake/Output Intake/Output: Intake & Output 10/08/21 10/09/21 10/10/21 10/11/21 23:59 23:59 23:59 23:59 Inta
--- NOTE | 2021-10-11 19:29 | PC.NURSE ---
Notified DESTINEE Amador of pt's HR decreasing to 40's, but not sustained.
[2021-10-12] VITALS (7 sets, daily range): BP systolic 97–118; BP diastolic 55–70; PULSE 48–75; RESP 16–20; TEMP 36.2–36.7; O2SAT 97–99
[2021-10-12 05:02] LABS: Hematocrit 40.5 % (42.0-52.0); Hemoglobin 13.2 g/dL (14.0-18.0); Mean Corpuscular HGB Conc 32.6 g/dl (32-36); Mean Corpuscular Volume 98.3 fl (80-100); Mean Platelet Volume 9.9 fl (7.4-10.4); Platelet Count Result 183 k/mm3 (150-375); Red Blood Count 4.12 M/mm3 (4.6-6.20); Red Cell Distribution Width 13.7 % (11.5-14.5); White Blood Count 13.5 K/mm3 (4.5-10.0)
[2021-10-12 05:13] LABS: Alanine Aminotransferase 30 U/L (6-50); Albumin Level 3.3 g/dL (3.5-5.1); Alkaline Phosphatase 59 U/L (38-126); Anion Gap 5 mmol/L (8-16); Aspartate Amino Transferase 51 U/L (17-59); Bilirubin,Total 0.3 mg/dL (0.2-1.3); Blood Urea Nitrogen 17 mg/dL (9-20); Calcium 8.4 mg/dL (8.4-10.2); Carbon Dioxide 27 mmol/L (22-30); Chloride 107 mmol/L (98-107); Estimated CRCL calculation 65 ml/min; Estimated Glomerular Filt Rate > 60; Glucose 143 mg/dL (65-110); Phosphorus 3.9 mg/dL (2.5-4.5); Potassium 3.8 mmol/L (3.4-5.0); Sodium 139 mmol/L (137-145)
[2021-10-12] MEDS: LEVOTHYROXINE SODIUM 112 MCG, LEVOTHYROXINE SODIUM 25 MCG 137 MCG PO (06:25)
[2021-10-12] MEDS: ASPIRIN 81 MG CHEWABLE TABLET PO (08:17)
[2021-10-12] MEDS: FOLIC ACID 1 MG TABLET PO (08:17)
[2021-10-12] MEDS: carvediloL 6.25 MG TABLET PO (08:17)
[2021-10-12] MEDS: ATORVASTATIN 40 MG TABLET 80 MG PO (08:17)
[2021-10-12] MEDS: OMEGA 3 POLYUNSAT FATTY ACIDS 1 GM CAP PO (08:17)
[2021-10-12] MEDS: LOSARTAN POTASSIUM 25 MG TABLET PO (08:17)
[2021-10-12] MEDS: TICAGRELOR 90 MG TABLET PO (08:17)
[2021-10-12] MEDS: PANTOPRAZOLE 40 MG TABLET PO (08:17)
[2021-10-12] MEDS: predniSONE 5 MG TABLET PO (08:17)
--- NOTE | 2021-10-12 08:38 | PM.DS ---
DS: Admitting Diagnosis Discharge Date 10/12/2021 Admitting Diagnosis chest pain DS: Discharge Diagnosis Discharge Diagnosis (1) ST elevation (STEMI) myocardial infarction: Qualifiers: Involved coronary artery: unspecified coronary artery Qualified Code(s): I21.3 - ST elevation (STEMI) myocardial infarction of unspecified site Code(s): I21.3 - ST elevation (STEMI) myocardial infarction of unspecified site Status: Acute Assessment and Plan: 51-year-old man with previous history of dyslipidemia and smoking with acute anterior wall infarction and successful PCI of the LAD using the sirolimus Orsiro drug-eluting stent with a very good anatomical result. Unfortunately somewhat late presentation and has some LV systolic dysfunction as a result, EF 40-45%. VSS today, no arrhythmias on telemetry Continue DAPT with ASA, Brilinta without interruption for at least one year Continue statin Continue aggressive risk factor modification including smoking cessation, heart healthy diet, aerobic exercise Continue losartan, coreg OK for discharge today with close outpatient follow up DS: Summary Hospital Course Hospital Course: Entered the hospital with complaints of chest pain that occurred while cutting the grass about 3 hours prior to coming to the hospital. EKG taken in the field showed evidence of acute anterior wall DC. He was taken emergently to the cardiac labels molder and was found to have acute thrombotic occlusion to the proximal LAD. This was treated with placement of a drug eluting stent with a good anatomical result. Unfortunately because of a relatively late presentation he now has some LV systolic dysfunction seen on echo with an EF of 40-45%. His hospital course has been generally uneventful and he has not had any post-procedural complications. He is stable this morning and appropriate for discharge home. Time Spent with Patient Time attestation: Total time spent providing and/or coordinating discharge services: Exam Const: General: comfortable, no acute distress and uncomfortable Other: Well-developed well-nourished gentleman lying in bed in no distress. HENMT: Mouth: Yes moist mucous membranes Eyes: Sclera: sclerae normal Pupils: Equal, round and reactive pupils present Neck: Neck: supple and no JVD Other: Carotid pulses intact bilaterally no bruits Resp: Effort & Inspection: normal respiratory effort Auscultation: clear to auscultation bilaterally Cardio: Rate: regular rate Rhythm: regular rhythm Heart sounds: no gallops, no murmurs and no rubs Other: GI: Auscultation: normal bowel sounds Skin: General skin exam: normal color Other: R groin arterial access site free from bleeding, hematoma, bruit. Neuro: Cranial nerves: Yes Equal, round and reactive pupils present Other: normal cognition Extrem: General: normal to inspection Other: no edema, good pulses no hematoma at the right groin puncture site DS: Data Data Completed and Pending Labs on day of discharge: Labs from last 24 hours 10/12/21 10/12/21 04:43 04:43 WBC 13.5 H RBC 4.12 L Hgb 13.2 L Hct 40.5 L MCV 98.3 MCH 32.0 MCHC 32.6 RDW 13.7 Plt Count 183 MPV 9.9 Sodium 139 Potassium 3.8 Chloride 107 Carbon Dioxide 27 Anion Gap 5 L BUN 17 Creatinine 1.00 Estim Creat Clear Calc 65 Estimated GFR > 60 Glucose 143 H Calcium 8.4 Phosphorus 3.9 Magnesium 2.0 Total Bilirubin 0.3 AST 51 ALT 30 Alkaline Phosphatase 59 Total Protein 6.0 L Albumin 3.3 L Discharge Plan Discharge Discharging Clinician: Marjorie Green Patient Disposition: Home, Self-Care Activity: july shower Diet: heart healthy Discharge Instructions: [facility]
== END 2021-10-12 10:25 | disposition home or self-care (01) | DRG 247 ==
LOC: ANHED 11:38 → ANHCATHLAB 11:43 → ANHED 12:46 → ANHICU 12:46 → ANHIMU 10-10 13:12
PROVIDERS: Internal Medicine; Admitting Provider Specialist; Emergency Provider Emergency Medicine; PCP Family Medicine; Visit Provider Nurse Practitioner
PROC: 4A023N7 Measurement of Cardiac Sampling and Pressure, Left Heart, Percutaneous Approach (ICD-10-PCS; CPT 93452; principal; 2021-10-09 11:25)
PROC: 027034Z Dilation of Coronary Artery, One Artery with Drug-eluting Intraluminal Device, Percutaneous Approach (ICD-10-PCS; 2021-10-09 11:25)
DX: I21.09 ST elevation (STEMI) myocardial infarction involving other coronary artery of anterior wall (principal); N18.30 Chronic kidney disease, stage 3 unspecified; E78.5 Hyperlipidemia, unspecified; K21.9 Gastro-esophageal reflux disease without esophagitis; E03.9 Hypothyroidism, unspecified; N52.9 Male erectile dysfunction, unspecified; F17.210 Nicotine dependence, cigarettes, uncomplicated; M19.90 Unspecified osteoarthritis, unspecified site
CPT/HCPCS: 36415; 70450; 71045; 80053; 80061; 83735; 84100; 84484; 85025; 85027; 85610; 85730; 86850; 86900; 86901; 93005; 93306; 93458; 96374; 96375; 99291; A9270; C1725; C1769; C1874; C1887; C1894; C9606; J0583; J1644; J2270; J2405; J7030; J7040; J7512

== ENCOUNTER 2021-11-10 07:58 | Outpatient (RCR) | payer OTHER, SELFPAY | END 2021-11-10 23:59 | disposition home or self-care (01) | LOC: ANHAUDIO 07:58 | PROVIDERS: PCP Family Medicine; Visit Provider Family Medicine | DX: Z46.1 Encounter for fitting and adjustment of hearing aid (principal) | CPT/HCPCS: 92593 ==

== ENCOUNTER 2022-01-13 16:30 | Outpatient (RCR) | payer OTHER, SELFPAY ==
[2021-11-12 11:42] VITALS: PULSE 63
== END 2022-01-19 16:09 | disposition home or self-care (01) ==
LOC: ANHCPREHAB 16:30
PROVIDERS: PCP Family Medicine; Visit Provider Nurse Practitioner Adult Health
DX: Z95.5 Presence of coronary angioplasty implant and graft (principal)
CPT/HCPCS: 93798

== ENCOUNTER 2025-03-03 22:44 | Emergency (ER) | payer SELFPAY ==
--- NOTE | ~2025-03-03 | CT_ITS ---
EXAMINATION: CTA chest PE protocol DATE: 03/04/2025 02:00 INDICATION: Syncope. TECHNIQUE: Computed tomography angiography (CTA) of the chest was performed with 100 mL Omnipaque-350 intravenous contrast timed to evaluate the pulmonary arteries. Coronal maximum intensity projection 3D-reconstructions were created by the technologist. Automated exposure control and iterative reconstruction technique were employed. The dose-length product was 225.81 mGy-cm. COMPARISON: Chest CT 04/15/20 FINDINGS: There is moderate emphysema. There is mild scarring at the lung apices. There is mild atelectasis bilaterally. There are mild airspace opacities in posterior segment right upper lobe. There are a few stable nodules in the lungs measuring up to 5 mm, likely benign. There are trace pleural effusions. The heart size is normal. There is a small pericardial effusion. There is no pulmonary embolus. There is severe cervical spondylosis and mild thoracic spondylosis. IMPRESSION: 1. No pulmonary embolus. 2. Moderate emphysema. 3. Mild airspace opacities in posterior segment right upper lobe, consistent with atelectasis versus pneumonia. 4. Small pericardial effusion. Reviewed, dictated and finalized at location E. [employer] YE[employer] IMPRESSION: 1. No pulmonary embolus. 2. Moderate emphysema. 3. Mild airspace opacities in posterior segment right upper lobe, consistent wi th atelectasis versus pneumonia. 4. Small pericardial effusion.
--- NOTE | 2025-03-03 22:54 | ECG_ITS ---
Test Date: 2025-03-03 23:03:59 Measurements Intervals [place] Rate: 52 P: 83 [place]: 186 QRS: 83 QRSD: 94 T: 81 QT: 393 QTc: 368 Interpretive Statements SINUS BRADYCARDIA LOW QRS VOLTAGE IN LIMB LEADS ANTEROSEPTAL INFARCT, AGE INDETERMINATE BORDERLINE T WAVE ABNORMALITY- LATERAL LEADS BASELINE ARTIFACT- I, II, AVR, AVL, AVF, V1-V6 ABNORMAL ECG No previous ECG available for comparison Electronically Signed On 03-04-2025 06:16:24 BILINGUAL LEGAL ASSISTANT by Miquel Lindsey D.O.
[2025-03-03 22:58] VITALS: BP 93/81; PULSE 55; RESP 18; TEMP 36.6; O2SAT 97
[2025-03-03 23:09] VITALS: BP 97/66; PULSE 53
--- NOTE | 2025-03-03 23:09 | ED.GENADULT ---
HPI - General Adult General Chief complaint: Syncope Stated complaint: syncope Time Seen by Provider: 03/03/25 22:52 History of Present Illness HPI narrative: 55-year-old male presents emergency department for evaluation for multiple syncopal episodes. Patient states he got up to walk to the bathroom when he had onset of a syncopal episode. Patient sat up and had a 2nd syncopal episode. His was coming in to help him patient had a 3rd syncopal episode. Patient did have loss of bowel and bladder control. EMS was called and patient arrived to the emergency department by EMS. Upon arrival emergency department patient was alert oriented and back to his baseline. Patient does report significant cardiac history but denies any chest pain with this. Patient has had cough and congestion symptoms over the last week. Patient has also had increased diarrhea over the last few days. Patient was hypotensive upon arrival to the emergency department. Related Data Home Medications ?Medication ?Instructions ?Recorded ?Confirmed ?Last Taken ?Type folic acid 1 mg tablet 1 mg PO DAILY 09/09/21 11/12/21 Unknown History methotrexate sodium 2.5 mg tablet 25 mg PO WEEKLY 09/09/21 11/12/21 Unknown History prednisone 5 mg tablet See Rx Instructions .Route .COMPLEX 09/09/21 11/12/21 Unknown History tramadol 50 mg tablet 50 mg PO Q6H PRN Pain 09/09/21 11/12/21 Unknown History Allergies Allergy/AdvReac Type Severity Reaction Status Date / Time No Known Allergies Allergy Verified 02/16/22 14:48 Review of Systems Review of Systems: All systems reviewed & are unremarkable except as noted in HPI and below PMFSH Past Medical History Medical History CKD (chronic kidney disease) stage 3, GFR 30-59 ml/min Dyslipidemia Erectile dysfunction Frequent headaches GERD (gastroesophageal reflux disease) Headache Healthy adult male Hearing loss Hypothyroidism Migraine Syncopal episodes Thyroid disease Family History Family History Father Diabetes mellitus Myocardial infarct Sibling Diabetes mellitus Mother Hypertension Myocardial infarct Social History Social History (Updated 02/16/22 @ 14:51 by Jammie Leavitt CMA) Smoking packs per day: 2 Smoking cigarettes per day: 40.0 Years smoked: 50 Smoking pack-years: 100.00 Smoking status: Former smoker Tobacco type: cigarettes Smoking end date: 01/26/22 Alcohol intake: former Substance use: never Substance use type: does not use Lack of Transportation: No Lack of Food: Never True Current Housing: I Have Housing Concerned About Future Housing: No Difficulty Paying Gas/Electric Bills: No Difficulty Paying for Meds: No Currently Unemployed: No Education: High School Diploma/GED Difficulty w/ Childcare or Family Care: No Living arrangements: with family Occupation/Education: occupation Additional occupation/education comments: [employer] Gender identity (if verbalized by the patient): Male Sexual Orientation (if Verbalized by the Patient): Straight or Heterosexual Spiritual care concerns: No Agree to blood products: Yes Exam Narrative: APPEARANCE: Well appearing, no pain, no distress, well-nourished. HEAD: normocephalic, atraumatic. EYES: PERRLA/EOMI, conjunctivae clear. NOSE: Normal no drainage EARS:TMS clear with good light reflex. THROAT: Pharynx clear, no exudate. NECK: Supple. No adenopathy, no masses. RESPIRATORY: Airway patent, respirations nonlabored. Clear to auscultation bilaterally, no rales, rhonchi, wheezing. CARDIOVASCULAR: Regular rate and rhythm without murmurs rubs or gallops. ABDOMINAL: Soft, nontender, nondistended, normal bowel sounds MUSCULOSKELETAL: Moves all extremities. Strength/ROM intact, No edema, No calf tenderness. NEURO: Alert. Cranial nerves II through XII intact. Good gait. Good coordination SKIN: Warm, dry. Normal Color Course Vital Signs Vital signs: Vital Signs Temperature 97.8 F 03/03/25 22:58 Pulse Rate 55 L 03/03/25 22:58 Respiratory Rate 18 03/03/25 22:58 Blood Pressure 93/81 L 03/03/25 22:58 Pulse Oximetry 97 03/03/25 22:58 Oxygen Delivery Room Air 03/03/25 22:58 Temperature 97.8 F 03/03/25 22:58 Pulse Rate 68 03/04/25 05:40 Respiratory Rate 18 03/04/25 05:40 Blood Pressure 115/81 03/04/25 05:40 Pulse Oximetry 96 03/04/25 05:40 Oxygen Delivery Room Air 03/03/25 22:58 MDM MDM Narrative Medical decision making narrative: 55-year-old male presents emergency department for evaluation for description of orthostatic hypotension. Patient had been walking to the bathroom when he had a syncopal episode. Patient denies any falls or injuries from the syncopal episode. Patient reports he has had diarrhea over the last few days. Patient is currently afebrile with no leukocytosis hemoglobin of 12.9. INR 1.0. Patient did have an elevated D-dimer CTA was negative for pulmonary embolism but did show possible infectious etiology. Patient's creatinine was 1.65 which is mildly over his baseline. Patient was treated with IV fluids and did feel improved. Patient was ambulated and staff felt that the patient's gait was mildly on stable but states this is his normal gait. She states he is at his normal baseline. Patient is alert and appropriate evaluation. Due to the syncope and possibility of an infectious etiology patient was offered admission for IV antibiotics and further workup. Patient and family both declined the admission and preferred to be discharged home. Patient was started on antibiotics in the emergency department. Patient was also educated on reasons to return to the emergency department. All questions concerns were addressed. Differential Diagnosis Differential Diagnosis: Orthostatic hypotension, cardiac syncope, pulmonary embolism, ACS Lab Data 03/04/25 00:24 03/04/25 00:24 Labs: Lab Results 03/04/25 Range/Units 00:24 WBC 7.3 (4.5-10.0) K/mm3 RBC 3.98 L (4.6-6.20) M/mm3 Hgb 12.9 L (14.0-18.0) g/dL Hct 40.1 L (42.0-52.0) % MCV 100.8 H (80-100) fl MCH 32.4 (26-34) pg MCHC 32.2 (32-36) g/dl RDW 13.3 (11.5-14.5) % Plt Count 110 L (150-375) k/mm3 MPV 9.9 (7.4-10.4) fl Immature Gran % (Auto) 0.7 H (0-0.5) % Neut % (Auto) 61.8 (45.5-73.1) % Lymph % (Auto) 29.9 (18.3-44.2) % [place] % (Auto) 6.9 (2.6-8.5) % Eos % (Auto) 0.3 (0-4.4) % Baso % (Auto) 0.4 (0.2-1.2) % Lymph # (Auto) 2.17 (0.9-3.2) K/mm3 [place] # (Auto) 0.5 (0.1-0.6) K/mm3 Eos # (Auto) 0.0 (0-0.3) K/mm3 Baso # (Auto) 0.0 (0.0-0.1) K/mm3 Abs Immat Gran (auto) 0.05 H (0.00-0.031) K/mm3 Absolute Neuts (auto) 4.5 (1.3-6.7) K/mm3 Absolute Nucleated RBC 0.000 (0.0-0.012) K/mm3 Nucleated RBC % 0.0 (0.0-0.2) % PT 13.3 (11.1-14.7) Seconds INR 1.0 APTT 36.8 (22.3-36.8) Seconds D-Dimer 0.60 H (<0.48) ug/mL Sodium 134 L (137-145) mmol/L Potassium 4.5 (3.4-5.0) mmol/L Chloride 106 (98-107) mmol/L Carbon Dioxide 26 (22-30) mmol/L Anion Gap 2 L (4-12) mmol/L BUN 21 H (9-20) mg/dL Creatinine 1.65 H (0.7-1.3) mg/dL Estim Creat Clear Calc Not Reportable Estimated GFR 43 L (59 - ) Glucose 99 (65-110) mg/dL Calcium 8.5 (8.4-10.2) mg/dL Total Bilirubin 0.5 (0.2-1.3) mg/dL AST 87 H (17-59) U/L ALT 86 H (6-50) U/L Alkaline Phosphatase 53 (38-126) U/L Troponin I < 0.012 (0.000-0.034) ng/mL NT-Pro-B Natriuret Pep 368 H (19.9-100) pg/mL Total Protein 6.9 (6.3-8.2) g/dL Albumin 3.9 (3.5-5.1) g/dL Imaging Data Radiologist's impression: CTA chest Impression: No pulmonary embolism. No aortic aneurysm or dissection. Emphysema. Mild anterior septal thickening is concerning for pulmonary edema. Interspace opacity in the right upper lobe suspicious for atypical infection. Additionally there is mild peribronchial thickening which could be infectious or inflammatory. Nicki fistular right middle lobe pulmonary nodules are demonstrated benign morphology. The right heart size is within normal limits. Pericardial effusion measuring up to 8 mm. no fracture Discharge Plan Discharge Clinical Impression: Syncope, Diarrhea, Pneumonia Patient Disposition: Home Condition: Stable Instructions: Antibiotic Form Additional Instructions: You were offered admission for further syncope workup and for treatment of a possible pneumonia. You preferred to be discharged to home. You are being started on antibiotics for possible pneumonia. Please have close follow-up with your primary care physician. If you have any worsening symptoms then please call or return to the emergency department. Patient Language: Sami Prescriptions: New azithromycin 250 mg tablet See Rx Instructions .ROUTE .COMPLEX Qty: 6 0RF Rx Instructions: For 250 mg dose pack: take 500 mg today (day 1), then 250 mg for 4 days (days 2-5) amoxicillin-pot clavulanate 875-125 mg tablet 1 tablet PO Q12H 7 Days Qty: 14 0RF No Action tramadol 50 mg tablet 50 mg PO Q6H PRN (Reason: Pain) folic acid 1 mg tablet 1 mg PO DAILY methotrexate sodium 2.5 mg tablet 25 mg PO WEEKLY Rx Instructions: 5 tablets BID once a week prednisone 5 mg tablet See Rx Instructions .ROUTE .COMPLEX Rx Instructions: Take 1-3 tablet po daily omeprazole 40 mg capsule,delayed release(DR/EC) 40 mg PO DAILY Qty: 90 1RF atorvastatin 40 mg Tablet 80 mg PO DAILY 30 Days Qty: 60 11RF carvedilol [Coreg] 6.25 mg Tablet 6.25 mg PO Q12HR 30 Days Qty: 60 11RF losartan 25 mg Tablet 25 mg PO DAILY 30 Days Qty: 30 11RF aspirin [Children's Aspirin] 81 mg Tablet,Chewable 81 mg PO DAILY@0800 30 Days Qty: 30 11RF Brilinta 90 mg Tablet 90 mg PO Q12HR 30 Days Qty: 60 11RF levothyroxine [Synthroid] 137 mcg tablet 137 mcg PO DAILY Qty: 90 1RF Follow-up/Referrals: Sunita Dunne MD [Physician, Family Practice]
[2025-03-03 23:10] VITALS: BP 97/66; PULSE 61
[2025-03-03 23:12] VITALS: BP 100/68; PULSE 61
[2025-03-03] MEDS: LACTATED RINGERS 1,000 ML 999 ML IV CONT (23:23)
[2025-03-03 23:30] VITALS: BP 89/64; PULSE 48; RESP 14; O2SAT 98
[2025-03-04 00:30] VITALS: BP 99/69; PULSE 58; RESP 18; O2SAT 99
[2025-03-04 00:44] LABS: INR 1.0; Partial Thromboplastin Time 36.8 Seconds (22.3-36.8); Prothrombin Time 13.3 Seconds (11.1-14.7)
[2025-03-04 00:45] LABS: Hematocrit 40.1 % (42.0-52.0); Hemoglobin 12.9 g/dL (14.0-18.0); Immature Granulocyte Percent A 0.7 % (0-0.5); Lymphocytes Absolute Auto 2.17 K/mm3 (0.9-3.2); Mean Corpuscular HGB Conc 32.2 g/dl (32-36); Mean Corpuscular Hemoglobin 32.4 pg (26-34); Mean Corpuscular Volume 100.8 fl (80-100); Nucleated Red Blood Cells Absolute Auto 0.000 K/mm3 (0.0-0.012); Nucleated Red Blood Cells Perc 0.0 % (0.0-0.2); Platelet Count Result 110 k/mm3 (150-375); Red Blood Count 3.98 M/mm3 (4.6-6.20); White Blood Count 7.3 K/mm3 (4.5-10.0)
[2025-03-04 00:49] LABS: Alanine Aminotransferase 86 U/L (6-50); Albumin Level 3.9 g/dL (3.5-5.1); Alkaline Phosphatase 53 U/L (38-126); Anion Gap 2 mmol/L (4-12); Aspartate Amino Transferase 87 U/L (17-59); Bilirubin,Total 0.5 mg/dL (0.2-1.3); Blood Urea Nitrogen 21 mg/dL (9-20); Calcium 8.5 mg/dL (8.4-10.2); Carbon Dioxide 26 mmol/L (22-30); Chloride 106 mmol/L (98-107); Estimated Glomerular Filt Rate 43; Glucose 99 mg/dL (65-110); Potassium 4.5 mmol/L (3.4-5.0); Sodium 134 mmol/L (137-145); Total Protein 6.9 g/dL (6.3-8.2)
[2025-03-04 00:56] LABS: NT Pro B Type Natriuretic Pept 368 pg/mL (19.9-100); Troponin I < 0.012 ng/mL (0.000-0.034)
[2025-03-04 03:29] VITALS: BP 97/7; PULSE 56; RESP 16; O2SAT 99
[2025-03-04] MEDS: AZITHROMYCIN 250 MG TABLET 500 MG PO (05:34)
[2025-03-04 05:40] VITALS: BP 115/81; PULSE 68; RESP 18; O2SAT 96
== END 2025-03-04 05:41 | disposition home or self-care (01) ==
PROVIDERS: Emergency Provider Emergency Medicine
DX: R55 Syncope and collapse (principal); R19.7 Diarrhea, unspecified; J18.9 Pneumonia, unspecified organism; R94.31 Abnormal electrocardiogram [ECG] [EKG]; N18.30 Chronic kidney disease, stage 3 unspecified; E78.5 Hyperlipidemia, unspecified; K21.9 Gastro-esophageal reflux disease without esophagitis; E03.9 Hypothyroidism, unspecified
CPT/HCPCS: 36415; 71275; 80053; 83880; 84484; 85025; 85380; 85610; 85730; 93005; 96360; 96361; 99284; A9270; J7120; Q9967